=== PATIENT | female | born 1955 ===

== ENCOUNTER 2021-03-08 20:58 | Observation (INO) | payer BC ==
[2021-03-08] MEDS ORDERED: Ondansetron ODT 4 MG TAB PO PRN (22:38)
[2021-03-08] MEDS ORDERED: Morphine 4 MG/ML VIAL SLOW IVP PRN (22:38)
[2021-03-08] MEDS ORDERED: Ondansetron PF 4 MG/2 ML Vial IVP PRN (22:38)
[2021-03-08] MEDS ORDERED: Lorazepam 2 MG/ML VIAL SLOW IVP PRN (22:38)
[2021-03-08] MEDS ORDERED: Morphine 2 MG/ML VIAL SLOW IVP PRN (22:38)
[2021-03-08] MEDS ORDERED: hydrALAZINE 20 MG/ML VIAL SLOW IVP PRN (22:38)
[2021-03-08] MEDS ORDERED: Acetaminophen 500 MG TAB PO PRN (22:40)
[2021-03-08 23:45] VITALS: BMI 25.0
[2021-03-08] MEDS ORDERED: Scopolamine 1.5 mg/72 hour Patch TD SCH (23:59)
[2021-03-08] MEDS ORDERED: Enoxaparin Sodium 40 MG/0.4 ML SYRINGE SC SCH (23:59)
[2021-03-09] MEDS: Ketorolac Tromethamine 30 MG/ML VIAL IVP SCH ×3 (00:53→12:02)
[2021-03-09] MEDS: Potassium Chloride 20 MEQ in Lactated Ringer's 1,000 ML IV SCH ×2 (00:54→08:55)
[2021-03-09] MEDS ORDERED: metroNIDAZOLE 750 MG in Admixture Fee 1 EACH IVPB SCH (01:00)
[2021-03-09] MEDS: metroNIDAZOLE 750 MG in Admixture Fee 1 EACH IVPB SCH ×2 (02:20→11:07)
[2021-03-09 07:22] LABS: ALT (SGPT) 18 U/L (8-55); AST (SGOT) 16 U/L (5-34); Albumin 3.6 g/dL (3.4-4.8); Alkaline Phosphatase 57 U/L (40-110); Anion Gap 10 mmol/L (10-20); BUN (Urea Nitrogen) 10 mg/dL (9.8-20.1); Bilirubin, Total 0.3 mg/dL (0.2-1.2); Calc. Creatinine Clearance 69 mL/min (70-130); Calcium 8.6 mg/dL (7.8-10.44); Carbon Dioxide 27 mmol/L (23-31); Chloride 105 mmol/L (98-107); Globulin 2.2 g/dL (2.4-3.5); Glucose 94 mg/dL (80-115); Potassium 3.3 mmol/L (3.5-5.1); Protein, Total 5.8 g/dL (5.8-8.1); Sodium 139 mmol/L (136-145)
[2021-03-09] MEDS ORDERED: Lidocaine 1% w/Epinephrine 1:100K 20 ML VIAL ONE (08:35)
[2021-03-09] MEDS ORDERED: Bupivacaine 0.25% HCL 30 ML VIAL ONE (08:35)
[2021-03-09] MEDS ORDERED: Famotidine/PF 20 mg/2ml Vial SLOW IVP SCH (09:00)
[2021-03-09] MEDS ORDERED: Midazolam HCl 2 mg/2 ml Vial ONE (10:49)
[2021-03-09] MEDS ORDERED: Fentanyl 100 MCG/2 ML VIAL ONE ×2 (10:49→11:31)
[2021-03-09] MEDS ORDERED: Lidocaine 1% PF 5 ML VIAL ONE (11:08)
[2021-03-09] MEDS ORDERED: Naloxone HCl 0.4 mg/ml Vial ONE (11:08)
[2021-03-09] MEDS ORDERED: PROPOFOL 200 MG/20 ML VIAL ONE (11:08)
[2021-03-09] MEDS ORDERED: Rocuronium Bromide 10 MG/ML (10ML VIAL) ONE (11:08)
[2021-03-09] MEDS ORDERED: Ondansetron PF 4 MG/2 ML Vial ONE (11:08)
[2021-03-09] MEDS ORDERED: Dexamethasone 20 MG/5 ML VIAL ONE (11:08)
[2021-03-09] MEDS ORDERED: Ketorolac Tromethamine 30 MG/ML VIAL ONE (11:08)
[2021-03-09] MEDS ORDERED: Glycopyrrolate 0.2 MG/ML 5 ML SYRINGE ONE (11:08)
[2021-03-09] MEDS ORDERED: Ibuprofen 600 MG TAB PO PRN (12:17)
[2021-03-09] MEDS ORDERED: Ketorolac Tromethamine 30 MG/ML VIAL IVP PRN (12:18)
[2021-03-09] MEDS ORDERED: Meperidine HCl/PF 25 MG/ML VIAL SLOW IVP PRN (12:20)
[2021-03-09] MEDS ORDERED: Promethazine HCl 25 MG/ML VIAL IM PRN (12:20)
[2021-03-09] MEDS ORDERED: HYDROmorphone 2 MG/ML VIAL SLOW IVP PRN (12:20)
[2021-03-09] MEDS ORDERED: Promethazine HCl 25 MG/ML VIAL IVPB PRN (12:20)
[2021-03-09] MEDS ORDERED: Ondansetron HCl/PF 4 MG/2 ML Vial IVP PRN (12:20)
[2021-03-09] MEDS ORDERED: traMADol HCl 50 MG TAB PO PRN (12:21)
[2021-03-09 13:54] VITALS: TEMP 97.6
[2021-03-09 16:53] VITALS: BP 166/79
[2021-03-09] MEDS ORDERED: Enoxaparin Sodium 40 MG/0.4 ML SYRINGE SC SCH (21:00)
[2021-03-10] MEDS ORDERED: Amitriptyline HCl 25 MG TAB PO SCH (09:00)
[2021-03-10] MEDS ORDERED: Levothyroxine Sodium 50 MCG TAB PO SCH (09:00)
== END 2021-03-09 16:55 | disposition home or self-care (01) ==
LOC: T4-B 22:32 → INTOOBSV 22:32 → OBSVTOIN 22:32
PROVIDERS: ADMIT Specialist; ATTEND Specialist
PROC: 0FT44ZZ Resection of Gallbladder, Percutaneous Endoscopic Approach (ICD-10-PCS; principal; 2021-03-09)
PROC: 0DTJ4ZZ Resection of Appendix, Percutaneous Endoscopic Approach (ICD-10-PCS; 2021-03-09)
DX: K80.00 Calculus of gallbladder with acute cholecystitis without obstruction (principal); E03.9 Hypothyroidism, unspecified; K66.0 Peritoneal adhesions (postprocedural) (postinfection); I10 Essential (primary) hypertension; K38.0 Hyperplasia of appendix; Z88.5 Allergy status to narcotic agent; Z88.0 Allergy status to penicillin; Z90.710 Acquired absence of both cervix and uterus; Z90.89 Acquired absence of other organs; Z90.722 Acquired absence of ovaries, bilateral
CPT/HCPCS: 36415; 80053; 88304; J0360; J1100; J1650; J1885; J2250; J2310; J2405; J2704; J3010; J3480; J7120; S0020